=== PATIENT | female | born 1980 | race Caucasian/White ===

== ENCOUNTER 2019-01-06 07:26 | Day surgery (SDC) | payer OTHER ==
[~2019-01-06 07:26] MED LIST: LIDOCAINE 2% (SDV) 5 ML INJ
[2019-01-06] MEDS: ACETAMINOPHEN 500 MG TAB PO (08:26)
[2019-01-06] MEDS ORDERED: HYDROmorphONE 1 MG/5 ML IV SYRINGE IV ×2 (08:30)
[2019-01-06] MEDS ORDERED: ALBUTEROL 0.083% (NEB) 2.5 MG/3 ML AMP HHN (08:30)
[2019-01-06] MEDS ORDERED: LACTATED RINGER'S 1,000 ML IV (08:30)
[2019-01-06] MEDS ORDERED: morphine 2 MG INJ IV ×2 (08:30)
[2019-01-06] MEDS ORDERED: OXYCODONE/ACETAMINOPHEN (5/325) TAB PO (08:30)
[2019-01-06] MEDS ORDERED: DIPHENHYDRAMINE 50 MG INJ IV (08:30)
[2019-01-06] MEDS ORDERED: LABETALOL HCL 20MG INJ IV (08:30)
[2019-01-06] MEDS ORDERED: ROCURONIUM 50 MG INJ (08:37)
[2019-01-06] MEDS ORDERED: MIDAZOLAM 1 MG/ML 2 ML INJ (08:37)
[2019-01-06] MEDS ORDERED: PROPOFOL 40 ML (08:37)
[2019-01-06] MEDS ORDERED: FENTAnyl 50 MCG/ML VIAL ×2 (08:37→10:06)
[2019-01-06] MEDS ORDERED: ONDANSETRON 4 MG INJ (08:37)
[2019-01-06] MEDS ORDERED: FAMOTIDINE 20 MG INJ (08:37)
[2019-01-06] MEDS ORDERED: DEXAMETHASONE 4 MG/ML 5 ML INJ (08:41)
[2019-01-06] MEDS ORDERED: THROMBIN (BOVINE) 5,000 UNIT VIAL TP (09:06)
[2019-01-06] MEDS: CLINDAMYCIN 900 MG/D5W (PMX) 50 ML IVPB (09:10)
[2019-01-06] MEDS ORDERED: METOCLOPRAMIDE 10 MG INJ (09:19)
[2019-01-06] MEDS: GELATIN SIZE 100 SPONGE (09:39)
[2019-01-06] MEDS: POLYMYXIN/BACITRACIN 1L IRRIG (09:39)
[2019-01-06] MEDS: BUPIVACAINE 0.25% (MPF) 30 ML INJ (10:49)
[2019-01-06] MEDS: FENTAnyl 50 MCG/ML VIAL IV ×3 (11:12→11:40)
[2019-01-06] MEDS: MEPERIDINE 25 MG INJ IV (11:17)
[2019-01-06] MEDS: HYDROmorphONE 1 MG/5 ML IV SYRINGE IV (11:20)
[2019-01-06] MEDS: OXYCODONE/ACETAMINOPHEN (5/325) TAB PO ×2 (11:50→12:57)
[2019-01-06] MEDS: ONDANSETRON 4 MG INJ IV (11:59)
== END 2019-01-06 13:25 | disposition home or self-care (01) ==
LOC: SDS 07:26
DX: M13.842 Other specified arthritis, left hand (principal); J45.909 Unspecified asthma, uncomplicated
CPT/HCPCS: 25447; 73110-LT